=== PATIENT | female | born 1940 ===

== ENCOUNTER 2024-08-08 16:45 | Inpatient (IN) | payer MEDICARE, SELFPAY ==
[2024-08-08 10:59] VITALS: BP 132/80
--- NOTE | 2024-08-08 11:08 | ED.MUSCINJ ---
HPI-Injury
<Kana Van PA-C - Last Filed: 08/08/24 18:51>
General
Chief Complaint: Musculo-Skeletal Complaint
Time Seen by Provider: 08/08/24 12:34
<Fran Hill DO - Last Filed: 08/08/24 14:58>
General
Source: patient and family (daughter)
History of Present Illness-Injury
Initial Injury comments:
84-year-old female presents to the emergency room complaining of left hip pain. Patient is a highly active individual who states she woke up this morning feeling great. She was doing activities around her house like cooking and cleaning. After
sitting down for short period time she got up and suddenly felt pain in the left lateral hip area. The pain was significant and was preventing her from weightbearing. Patient does not go any recent injury. No abdominal pain. Patient denies any
fever or chills. She does not recall any history of left hip issues.
ED Provider Triage
<Kana Van PA-C - Last Filed: 08/08/24 18:51>
-
Patient seen by provider in Triage?: Seen in Triage
84-year-old female presents via EMS from home with sudden onset left hip pain. She notes pain to the anterior and lateral left hip. Unable to bear weight. No prior surgical history to the hip. She is on Xarelto. Having trouble ambulating
because of the pain. X-rays of left hip ordered. Vital signs are stable. Recommended further evaluation
Phy Exam
<Fran Hill DO - Last Filed: 08/08/24 14:58>
Physical Exam
Physical Exam:
General: Awake, Alert, Oriented X3. No acute distress.
Vitals: unremarkable
Head: Atraumatic
Eyes: Pupils equal, EOMI
Throat: Airway intact, no exudates
Neck: Trachea midline
Abd: Soft, Nontender, No pulsatile mass
Neuro: Nonfocal
Skin: Warm, dry, no rash
Extremities: pulses equal b/l, no edema. Tenderness to palpation over the lateral hip in the greater trochanteric region. Perhaps some fullness in this area. No pain with passive flexion. There is pain with internal and external rotation.
Injury Course
<Kana Van PA-C - Last Filed: 08/08/24 18:51>
Orders/Labs/Results
Orders:
Orders
08/08/24 Breakfast
Regular
At Your Request: Full Participation
Does patient need a safe tray?: No
08/08/24 11:07
CR Hip - LT w/wo Pel 2-3 Vw* Urgent
Comment:
Reason For Exam: pain left hip
Include a pelvis x-ray?: Yes
08/08/24 13:09
CT Lower Ext W/o Iv Cont Lt Urgent
Comment:
Reason For Exam: sudden lt hip pain, on Xarelto
08/08/24 14:22
HYDROmorphone [Dilaudid] 0.5 mg IV NOW STA
08/08/24 14:33
Type+Screen Urgent
Basic Metabolic Panel Urgent
Complete Blood Count/With Diff Urgent
08/08/24 14:58
Electrocardiogram (*1) Urgent
Reason for Study: Atrial Fibrillation
EKG- Treatment ONCE
08/08/24 15:19
ABO2 Urgent
BBK Wristband Number:
Associate notified that ABO2 has been ordered: [id number]
Date: 08/08/24
Time: 14:53
Heavy Forger Helper ID: [id number]
08/08/24 15:25
Admit/Transfer Patient As Directed
Co-Sign Provider:
Level of Care: Observation services
Assign to:: Medical/Surgical
Physician / Group: Leatha
Diagnosis: Left Thigh Hematoma
08/08/24 15:26
PRN Pain Medication Management As Directed
May give lesser potent ordered pain med per pt: Yes
preference::
Protocol:: Medication orders for pain may be administered in a
manner that supports deferring to patient preference
when the pt is:
- Requesting an ordered lesser potent pain medication.
Least to most potent pain medications are defined
as: acetaminophen < NSAID < tramadol < opioids
(morphine, oxycodone, hydromorphone).
- Requesting a lesser dose of the same medication IF
ORDERED.
- Requesting a less intrusive route of administration
if both routes are prescribed by the provider (PO <
IV).
08/08/24 15:28
Code Status As Directed
Resuscitation Status: Full Code
08/08/24 16:35
Acetaminophen [Tylenol] 1,000 mg PO Q8HPRN PRN
HYDROmorphone [Dilaudid] 0.25 mg IV Q3HPRN PRN
Oxycodone [Roxicodone] 5 mg PO Q4HPRN PRN
08/08/24 16:35
Activity As Directed
Activity Level: Out of Bed-Early Mobility
With Assistance
Pneumatic Compression Sleeves As Directed
Type: Knee high
Vital Signs As Directed
Frequency: Per unit guidelines
Ot Eval And Treat Routine
Pt Eval And Treat Routine
Activity Level: Out of Bed-Early Mobility
DX Deep Vein Thrombosis Video Routine
08/08/24 20:00
H&H Routine
08/09/24 06:00
Basic Metabolic Panel IN AM
Complete Blood Count/No Diff IN AM
08/09/24 08:00
Amlodipine [Norvasc] 5 mg PO DAILY
Atenolol [Tenormin] 50 mg PO DAILY
Abnormal Lab Results
08/08/24
14:33
RBC 4.08 L 10^6/uL
(4.20-5.40)
MCH 32.4 H pg
(27.0-31.0)
08/08/24 14:33
08/08/24 14:33
<Fran Hill, DO - Last Filed: 08/08/24 14:58>
Orders/Labs/Results
Orders:
Orders
08/08/24 Breakfast
Regular
At Your Request: Full Participation
Does patient need a safe tray?: No
08/08/24 11:07
CR Hip - LT w/wo Pel 2-3 Vw* Urgent
Comment:
Reason For Exam: pain left hip
Include a pelvis x-ray?: Yes
08/08/24 13:09
CT Lower Ext W/o Iv Cont Lt Urgent
Comment:
Reason For Exam: sudden lt hip pain, on Xarelto
08/08/24 14:22
HYDROmorphone [Dilaudid] 0.5 mg IV NOW STA
08/08/24 14:33
Type+Screen Urgent
Basic Metabolic Panel Urgent
Complete Blood Count/With Diff Urgent
08/08/24 14:58
Electrocardiogram (*1) Urgent
Reason for Study: Atrial Fibrillation
EKG- Treatment ONCE
08/08/24 15:19
ABO2 Urgent
BBK Wristband Number:
Associate notified that ABO2 has been ordered: [id number]
Date: 08/08/24
Time: 14:53
Heavy Forger Helper ID: [id number]
08/08/24 15:25
Admit/Transfer Patient As Directed
Co-Sign Provider:
Level of Care: Observation services
Assign to:: Medical/Surgical
Physician / Group: Leatha
Diagnosis: Left Thigh Hematoma
08/08/24 15:26
PRN Pain Medication Management As Directed
May give lesser potent ordered pain med per pt: Yes
preference::
Protocol:: Medication orders for pain may be administered in a
manner that supports deferring to patient preference
when the pt is:
- Requesting an ordered lesser potent pain medication.
Least to most potent pain medications are defined
as: acetaminophen < NSAID < tramadol < opioids
(morphine, oxycodone, hydromorphone).
- Requesting a lesser dose of the same medication IF
ORDERED.
- Requesting a less intrusive route of administration
if both routes are prescribed by the provider (PO <
IV).
08/08/24 15:28
Code Status As Directed
Resuscitation Status: Full Code
08/08/24 16:35
Acetaminophen [Tylenol] 1,000 mg PO Q8HPRN PRN
HYDROmorphone [Dilaudid] 0.25 mg IV Q3HPRN PRN
Oxycodone [Roxicodone] 5 mg PO Q4HPRN PRN
08/08/24 16:35
Activity As Directed
Activity Level: Out of Bed-Early Mobility
With Assistance
Pneumatic Compression Sleeves As Directed
Type: Knee high
Vital Signs As Directed
Frequency: Per unit guidelines
Ot Eval And Treat Routine
Pt Eval And Treat Routine
Activity Level: Out of Bed-Early Mobility
DX Deep Vein Thrombosis Video Routine
08/08/24 20:00
H&H Routine
08/09/24 06:00
Basic Metabolic Panel IN AM
Complete Blood Count/No Diff IN AM
08/09/24 08:00
Amlodipine [Norvasc] 5 mg PO DAILY
Atenolol [Tenormin] 50 mg PO DAILY
Abnormal Lab Results
08/08/24
14:33
RBC 4.08 L 10^6/uL
(4.20-5.40)
MCH 32.4 H pg
(27.0-31.0)
08/08/24 14:33
08/08/24 14:33
<Kana Van PA-C - Last Filed: 08/08/24 18:51>
*Critical Care Note
Total Time (30-74mins, 75-104mins- exclusive of procedures): Not Applicable
ED Attending Note
<Kana Van PA-C - Last Filed: 08/08/24 18:51>
-
Portions of this chart may have been created with voice recognition software.� Occasional wrong word or��sound alike� substitutions may have occurred due to the inherent limitations of voice recognition software.
Discharge Plan
Departure
Patient Disposition: Admit
Date of Disposition: 08/08/24
Time of Disposition: 14:57
Admit to: Med/Surg
Presentation/result/management discussed w/ accepting MD/DO: Hospitalist
Condition: Fair
Discharge Problem:
Hematoma of left thigh
Interventions
Interventions:
*Risk Screen - Suicide Last Done: 08/08/24 11:06
*General Assessment Last Done: 08/08/24 11:06
*Neglect/Abuse Screening Last Done: 08/08/24 11:06
*ED COVID-19 Vaccine History Last Done: 08/08/24 12:39
ED-Musculoskeletal Assessment Last Done: 08/08/24 12:39
[2024-08-08 14:42] LABS: % Basophils 0.7 % (0-2); % Eosinophils 0.9 % (0-6); % Immature Granulocytes 0.3 % (0-0.5); % Lymphocytes 24.3 % (20.5-51.1); % Monocytes 5.6 % (1.7-9.3); % Neutrophils 68.2 % (42.2-75.2); Absolute Basophils 0.1 10^3/uL (0-0.2); Absolute Eosinophils 0.1 10^3/uL (0-0.7); Absolute Lymphocytes 1.7 10^3/uL (1.2-3.4); Absolute Monocytes 0.4 10^3/uL (0.1-0.6); Absolute Neutrophils 4.7 10^3/uL (1.4-6.5); Hematocrit 37.6 % (37.0-47.0); Hemoglobin 13.2 g/dL (12.0-16.0); Mean Corp Hgb Conc. 35.1 g/dL (33.0-37.0); Mean Corpuscular Hgb 32.4 pg (27.0-31.0); Mean Corpuscular Volume 92.2 fL (81.0-99.0); Mean Platelet Volume 8.8 fL (7.4-10.4); Nucleated Red Blood Cells % 0 %; Platelet Count 189 10^3/uL (130-400); Red Blood Cell Count 4.08 10^6/uL (4.20-5.40); White Blood Cell Count 6.9 10^3/uL (4.8-10.8)
[2024-08-08 15:10] LABS: Blood Urea Nitrogen 17 mg/dl (7-17); Carbon Dioxide 27 mmol/L (22-30); Glucose 99 mg/dl (70-99); Sodium 143 mmol/L (135-145); eGFR > 60.00
[2024-08-08] MEDS: DILAUDID 0.5 MG IV (15:14)
--- NOTE | 2024-08-08 15:23 | HPS.HSE ---
Addendum entered and electronically signed by Silvia Zhang MD 08/08/24 17:00:
I saw and examined the patient.
The WATER TAXI FERRY OPERATOR or PA's note was reviewed and I agree with the note.
Comment:
84-year-old female presented to ER with gait problem and left hip pain. Patient reports being active at home doing activities around her house like cooking and cleaning. After sitting down for short period time she got up and suddenly felt pain
in the left lateral hip area. The pain was significant and was preventing her from weightbearing. Patient denied any recent injury or fall. No abdominal pain. Patient denies any fever or chills. She does not recall any history of left hip
issues.
Physical Exam
General: Comfortable and Conversant
HEENT: Anicteric and Moist mucous membranes
Respiratory: Clear and Non Labored Respirations
Cardiac: S1/S2 and Irregular Rhythm; No Tachycardia
GI: Soft and Non Tender
Musculoskeletal: No Clubbing, No Cyanosis, No Edema and Other (Tenderness to palpation left thigh/lateral hip)
Skin: Warm, Dry and Other (No bruising)
Neuro: Awake, Alert, Oriented and Nonfocal/grossly intact
Psych: Calm
Spontaneous Left Thigh Hematoma exacerbated by Xarelto
Will hold full dose of AC for now. Hematoma seemed confided, 5.0 x 4.0 heterogeneous, mildly hyperdense ill-defined collection along the posterior lateral left gluteal soft musculature/greater trochanter. No circulatory compromise, good peripheral
pulses.
- Will hold full dose of Xarelto and monitor H &H, if no acute drop, will resume Xarelto.
-Monitor H&H
-Consulted PT/OT
# Permanent Atrial Fibrillation,
No chest pain
-Xarelto dosing as above
# Essential Hypertension
-Continue amlodipine and atenolol with hold parameters
DVT proph: SCDs
Code Status: Full Code
Total time spent to see the patient on the floor, examine the patient, review data and lab results, discuss treatment plan with patient, ER doctor, nursing staff around 75 minutes
Original Note:
Family Physician
-
Family Physician: Margaret Larsen PA-C
Chief Complaint
-
Left Thigh Pain
History of Present Illness
Patient is an 84 y/o female past medical history of paroxysmal atrial fibrillation and hypertension who presents with left thigh pain. Patient reports she had a very busy morning doing laundry and cooking. She sat on the cough for a little and
when she tried to stand up she was unable to do so due to severe pain in her left thigh. Pain was so severe that she presented to the emergency department for evaluation. Work-up in the ED revealed a left thigh hematom. Patient denies any trauma
or injury. She is on Xarelto for her a-fib with last dose yesterday evening.
Medical History
Past Medical History
Past Medical History: Reports Other
Additional Past Medical History:
Atrial Fibrillation
Essential Hypertension
Past Surgical History: Reports Other
Additional Past Surgical History:
Cholecystectomy
Appendectomy
Hernia Repair
Bilateral Foot Surgery
Bilateral Upper Extremity Lumpectomy
Social History
Tobacco: Non-smoker
Alcohol: None
Personal:
Family History
Family History: Not pertinent
Allergies / Home Medications
Allergies reflects when Allergies were last updated in [employer].
Home Medications with original date entered in [employer]
Allergy/Medication List:
Allergies
Allergy/AdvReac Type Severity Reaction Status Date / Time
No Known Allergies Allergy Unverified 08/08/24 11:24
Home Medications
acetaminophen 500 mg tablet (Tylenol Extra Strength) 1,000 mg PO Q8HPRN PRN mild pain 08/08/24
amlodipine 5 mg tablet 5 mg PO DAILY 08/08/24
atenolol 50 mg tablet 50 mg PO DAILY 08/08/24
calcium carbonate (Calcium 500) 500 mg PO DAILY 08/08/24
cholecalciferol (vitamin D3) 25 mcg (1,000 unit) tablet (Vitamin D3) 25 mcg PO DAILY 08/08/24
cyanocobalamin (vitamin B-12) 1,000 mcg tablet 1,000 mcg PO DAILY 08/08/24
hydrochlorothiazide 12.5 mg tablet 12.5 mg PO DAILY 08/08/24
multivitamin with minerals-folic acid 200 mcg chewable tablet (Multivitamin Gummies) 2 tab PO DAILY 08/08/24
rivaroxaban 20 mg tablet (Xarelto) 20 mg PO QPM 08/08/24
Review of Systems
-
A 12 point ROS was completed and negative except as noted: Yes
Constitutional: Denies Fever or Chills
Respiratory: Denies Cough or Trouble Breathing
Cardiac: Denies Chest Pain or Palpitations
Physical Exam
Vital Signs
Vital Signs
Temp Pulse Resp BP Pulse Ox
98.2 F 68 18 132/80 100
08/08/24 10:59 08/08/24 10:59 08/08/24 10:59 08/08/24 10:59 08/08/24 10:59
Physical Exam
General: Comfortable and Conversant
HEENT: Anicteric and Moist mucous membranes
Respiratory: Clear and Non Labored Respirations
Cardiac: S1/S2 and Irregular Rhythm; No Tachycardia
GI: Soft and Non Tender
Musculoskeletal: No Clubbing, No Cyanosis, No Edema and Other (Tenderness to palpation left thigh/lateral hip)
Skin: Warm, Dry and Other (No bruising)
Neuro: Awake, Alert, Oriented and Nonfocal/grossly intact
Psych: Calm
Laboratory Results
-
08/08/24 14:33
08/08/24 14:33
Data Reviewed
-
CT Scan: Report Reviewed by me
Lab Data: Labs Reviewed by me
Impression/Plan
-
Spontaneous Left Thigh Hematoma
-Give Xarelto 10mg this evening
-Monitor H&H
-Consult PT/OT
Atrial Fibrillation, unknown duration possibly persistent/permanent
-Xarelto dosing as above
Essential Hypertension
-Continue amlodipine and atenolol with hold parameters
DVT proph: SCDs
Code Status: Full Code
[2024-08-08 16:41] LABS: Chloride 104 mmol/L (98-107)
[2024-08-08 17:09] VITALS: BMI 24.7
[2024-08-08] MEDS: XARELTO 10 MG PO (17:45)
[2024-08-08 20:07] LABS: Hematocrit 33.4 % (37.0-47.0); Hemoglobin 11.7 g/dL (12.0-16.0)
[2024-08-08 22:05] VITALS: BP 105/60
[2024-08-08] MEDS: TYLENOL 1000 MG PO (22:19)
--- NOTE | 2024-08-08 22:21 | PTCARENOTE ---
Pt reports left thigh discomfort 4/10 pain. Tylenol administered as ordered per request. Pt denies any other complaints at this time. Pt voided on bedpan without difficulty. Will continue to monitor.
[2024-08-09] VITALS (8 sets, daily range): BP systolic 95–124; BP diastolic 50–78; PULSE 70; BMI 23.7
[2024-08-09] MEDS: ROXICODONE 5 MG PO (03:06)
[2024-08-09 05:47] LABS: Hematocrit 33.8 % (37.0-47.0); Hemoglobin 11.6 g/dL (12.0-16.0); Mean Corp Hgb Conc. 34.3 g/dL (33.0-37.0); Mean Corpuscular Hgb 32.3 pg (27.0-31.0); Mean Corpuscular Volume 94.2 fL (81.0-99.0); Platelet Count 165 10^3/uL (130-400); Red Blood Cell Count 3.59 10^6/uL (4.20-5.40); Red Cell Dist. Width 13.2 % (11.5-14.5); White Blood Cell Count 5.1 10^3/uL (4.8-10.8)
[2024-08-09 06:24] LABS: Blood Urea Nitrogen 20 mg/dl (7-17); Calcium 9.3 mg/dl (8.4-10.2); Carbon Dioxide 30 mmol/L (22-30); Chloride 104 mmol/L (98-107); Estimated Creatinine Clearance 45 ml/min; Glucose 106 mg/dl (70-99); Potassium 3.9 mmol/L (3.5-5.1); Sodium 141 mmol/L (135-145); eGFR > 60.00
--- NOTE | 2024-08-09 08:26 | W.PN.HOSP.TC ---
Today's Communication/Plan
-
Pain control with Tylenol, as needed tramadol
Add as needed Zofran
Her on Dilaudid for severe pain
Hemoglobin check tonight
Fall precautions
Continue with PT/OT
Likely discharge on Tuesday if stable
Assessment / Plan
Assessment / Plan
84-year-old female presented to ER with gait problem and left hip pain. Patient reports being active at home doing activities around her house like cooking and cleaning. After sitting down for short period time she got up and suddenly felt pain
in the left lateral hip area. The pain was significant and was preventing her from weightbearing. Patient denied any recent injury or fall. No abdominal pain. Patient denies any fever or chills. She does not recall any history of left hip
issues.
Physical Exam
General: Comfortable and Conversant
HEENT: Anicteric and Moist mucous membranes
Respiratory: Clear and Non Labored Respirations
Cardiac: S1/S2 and Irregular Rhythm; No Tachycardia
GI: Soft and Non Tender
Musculoskeletal: No Clubbing, No Cyanosis, No Edema and Other (Tenderness to palpation left thigh/lateral hip)
Skin: Warm, Dry and Other (No bruising)
Neuro: Awake, Alert, Oriented and Nonfocal/grossly intact
Psych: Calm
# Spontaneous Left Thigh Hematoma exacerbated by Xarelto
Will hold Xarelto due to drop in HGB
CT showed 5.0 x 4.0 heterogeneous, mildly hyperdense ill-defined collection along the posterior lateral left gluteal soft musculature/greater trochanter. No circulatory compromise, good peripheral pulses.
- Monitor H &H, if no acute drop, will resume Xarelto.
- consulted surgery, recommend pain control and re-image in 6-8 weeks.
-Consulted PT/OT
-Patient had severe pain over night. She was given oxycodone. Order Tylenol 3 times daily
-Currently patient feels pain is better controlled. She experienced GI upset with oxycodone, discussed with patient, will try tramadol as needed, add as needed Zofran.
Keep intravenous Dilaudid for as needed
# Acute blood loss anemia exacerbated by Xarelto
Hold Xarelto
Monitor H&H
No hemodynamic instability
# Permanent Atrial Fibrillation,
No chest pain
Holding Xarelto pending stabilization of hemoglobin
# Essential Hypertension
-Continue amlodipine and atenolol with hold parameters
DVT proph: SCDs
Code Status: Full Code
Total time spent to see the patient on the floor, examine the patient, review data and lab results, discuss treatment plan with patient, patient's daughter, surgery, nursing staff around 59 minutes
Anticipated Discharge: Within 24 hours
Subjective/Interval History
-
Date of Service: August 09, 2024
Objective Data
-
Labs:
Laboratory Results
08/09/24 08/09/24
05:35 12:00
WBC 5.1
Hgb 11.6 L Pending
Hct 33.8 L
Plt Count 165
Sodium 141
Potassium 3.9
Chloride 104
Carbon Dioxide 30
BUN 20 H
Creatinine 0.8
Glucose 106 H
Calcium 9.3
Vital Signs:
Vital Signs
Temp Pulse Resp BP Pulse Ox
98.5 F 74 16 105/60 99
08/08/24 22:05 08/08/24 22:05 08/08/24 22:05 08/08/24 22:05 08/08/24 22:05
[2024-08-09] MEDS: TYLENOL 1000 MG PO ×2 (08:33→16:20)
[2024-08-09] MEDS: NORVASC 5 MG PO (08:34)
[2024-08-09] MEDS: TENORMIN PO (08:34)
--- NOTE | 2024-08-09 09:50 | CON.GS ---
Consultation
-
Reason for Consultation: Left lower extremity hematoma
Medical History
-
Chief Complaint: Lower extremity pain difficulty walking
History of Present Illness:
Patient is an 84-year-old female chronically anticoagulated on Xarelto for A-fib. She was in her usual baseline state of health through yesterday a.m. Lives with her daughter who is a nurse at [employer]. States that she was sitting on
the couch having a conversation with her daughter when she reached over for the telephone and took note of the acute onset of left hip and gluteal pain. This was sharp and abrupt in nature. At first she thought she may have spontaneously fractured
her femur. She was having difficulty walking and the pain persisted for couple hours so EMS was called and she was transported to [facility] emergency department for evaluation.
CT imaging identified a heterogeneous collection along the lateral aspect of the left greater trochanter and into the left gluteal region measuring approximately 5 x 4 cm. Noncontrast imaging so unable to assess for active blush.
This a.m. patient states that the discomfort is still there but it has slightly improved. She was able to ambulate for the first time with assistance to the bathroom. There is no visible swelling or ecchymosis on the skin.
Patient denies any trauma to the area nor fall. Prior to sitting on the couch when her symptoms started she was standing preparing dinner for the evening.
Past Medical History
Past Medical History: Other (Atrial fibrillation chronically anticoagulated on Xarelto, hypertension)
Past Surgical History: Other (Cholecystectomy, appendectomy, herniorrhaphy, foot surgeries)
Social History
Tobacco: Non-Smoker
Alcohol: None
Personal:
Living: With Family
Employment: Employed
Family History
Family History: Reviewed & Not Pertinent
Allergies / Home Medications
Allergy/AdvReac Type Severity Reaction Status Date / Time
No Known Allergies Allergy Unverified 08/08/24 11:24
�Medication �Instructions �Recorded �Confirmed �Type
acetaminophen 500 mg tablet 1,000 mg PO Q8HPRN PRN mild pain 08/08/24 08/08/24 History
(Tylenol Extra Strength)
amlodipine 5 mg tablet 5 mg PO DAILY Blood Pressure 08/08/24 08/08/24 History
atenolol 50 mg tablet 50 mg PO DAILY Blood Pressure 08/08/24 08/08/24 History
calcium carbonate (Calcium 500) 500 mg PO DAILY Supplement 08/08/24 08/08/24 History
cholecalciferol (vitamin D3) 25 25 mcg PO DAILY Supplement 08/08/24 08/08/24 History
mcg (1,000 unit) tablet (Vitamin
D3)
cyanocobalamin (vitamin B-12) 1,000 mcg PO DAILY Supplement 08/08/24 08/08/24 History
1,000 mcg tablet
hydrochlorothiazide 12.5 mg tablet 12.5 mg PO DAILY Blood Pressure 08/08/24 08/08/24 History
multivitamin with minerals-folic 2 tab PO DAILY supplement 08/08/24 08/08/24 History
acid 200 mcg chewable tablet
(Multivitamin Gummies)
rivaroxaban 20 mg tablet (Xarelto) 20 mg PO QPM Blood Clot 08/08/24 08/08/24 History
Prevention/Tx
Review of Systems
-
A 10 point review of systems was completed, and was negative except as per HPI.
Physical Exam
Vital Signs
Temp Pulse Resp BP Pulse Ox
98.3 F 71 18 117/75 100
08/09/24 09:09 08/09/24 09:09 08/09/24 09:09 08/09/24 09:09 08/09/24 09:09
08/08/24 08/09/24 08/10/24
06:59 06:59 06:59
Actual Weight 63.3 kg
Body Mass Index (BMI) 24.7
Lab Results
08/09/24 05:35
WBC 5.1 10^3/uL (4.8-10.8) 08/09/24 05:35
Hgb 11.6 g/dL (12.0-16.0) L 08/09/24 05:35
Hct 33.8 % (37.0-47.0) L 08/09/24 05:35
Plt Count 165 10^3/uL (130-400) 08/09/24 05:35
Abs Immat Gran (auto) 0.0 10^3/uL (0-0.05) 08/08/24 14:33
Neutrophils % 68.2 % (42.2-75.2) 08/08/24 14:33
Physical Exam
General: Well Developed, Well Nourished, No Apparent Distress and Other
HEENT: Normocephalic, Anicteric and Moist Mucous Membranes
Respiratory: Non Labored Respirations
Musculoskeletal: Other (No visible swelling along the left hip/greater trochanteric region. Tenderness palpation overlying the left gluteal/greater trochanteric, posterior thigh. No visible ecchymosis either.)
Skin: Warm
Neuro: AO x 3
Psych: Calm
Data Reviewed
-
CT Scan: Image Personally Visualized and interpreted, Discussed with Physician and Discussed with Patient
Labs: Labs Reviewed by me, Discussed with Physician and Discussed with Patient
Assessment / Plan
-
Assessment: 84-year-old female with left gluteal/greater trochanteric intramuscular soft tissue collection presumed to be spontaneous hematoma while on therapeutic anticoagulation (Xarelto for A-fib). No trauma reported. Modest size hematoma and
does not appear expansile.
Hemoglobin stable at 11.6 from 11.7 yesterday evening.
Looking through her MAR she received a lower dose of Xarelto 10 mg overnight
No indications for operative or therapeutic interventions (angioembolization) as no clinical signs suggestive of ongoing bleeding and no significant compressive symptoms other than discomfort from moderate size hematoma.
Plan: Will defer decisions on therapeutic anticoagulation to hospitalist service as she was administered lower dose Xarelto overnight.
Supportive care and increase ambulation as able
If decline in hemoglobin or signs of ongoing blood loss would hold all anticoagulation
Would also recommend consideration of outpatient imaging either MRI or CT with contrast in 6 to 8 weeks to confirm that there is no underlying soft tissue abnormality that may have predisposed patient to developing a spontaneous hematoma.
Signing off; please call if can be of further assistance with care.
[2024-08-09 12:34] LABS: Hemoglobin 11.1 g/dL (12.0-16.0)
[2024-08-09] MEDS: ULTRAM 50 MG PO ×2 (13:37→21:15)
[2024-08-09 20:28] LABS: Hemoglobin 11.1 g/dL (12.0-16.0)
[2024-08-09] MEDS: TYLENOL PO (22:00)
[2024-08-10 08:00] VITALS: BP 122/69
[2024-08-10 08:15] LABS: Hematocrit 33.4 % (37.0-47.0); Hemoglobin 11.3 g/dL (12.0-16.0); Mean Corp Hgb Conc. 33.8 g/dL (33.0-37.0); Mean Corpuscular Hgb 32.8 pg (27.0-31.0); Mean Corpuscular Volume 97.1 fL (81.0-99.0); Platelet Count 158 10^3/uL (130-400); Red Blood Cell Count 3.44 10^6/uL (4.20-5.40); Red Cell Dist. Width 13.1 % (11.5-14.5)
[2024-08-10 08:44] LABS: Blood Urea Nitrogen 18 mg/dl (7-17); Calcium 8.8 mg/dl (8.4-10.2); Carbon Dioxide 29 mmol/L (22-30); Chloride 103 mmol/L (98-107); Estimated Creatinine Clearance 45 ml/min; Glucose 90 mg/dl (70-99); Potassium 4.3 mmol/L (3.5-5.1); Sodium 142 mmol/L (135-145); eGFR > 60.00
--- NOTE | 2024-08-10 09:33 | W.DCSUMMARY ---
Discharge Summary
Discharge Data
Date of Admission: 08/08/24
Date of Discharge: 08/10/24
-
Pending Results: No
Hospital Course
84 years old female presented with left hip pain that happened suddenly. Patient denied history of trauma or fall. She presented to the emergency room with pain in the left hip area and inability to bear weight. Scan of the lower extremity showed
5.0 x 4.0 heterogeneous hematoma extending along the posterior lateral left gluteal soft musculature and greater trochanteric area. Patient was admitted to the hospital for pain control. Patient was taking Xarelto 20 mg for history of atrial
fibrillation. She was diagnosed with acute blood loss anemia exacerbated by Xarelto. Her hemoglobin stabilized around 11. Patient was evaluated by surgery recommended pain control and reimaging follow-up in few weeks. Pain was controlled with
Tylenol and as needed tramadol. Patient was placed back on Xarelto, pharmacist recommended to change the dose of Xarelto to 15 mg daily according to age, kidney function and weight. Patient remained hemodynamically stable and was discharged home
in a stable condition. She was evaluated by physical therapy.
Physical Exam
General: Comfortable and Conversant
HEENT: Anicteric and Moist mucous membranes
Respiratory: Clear and Non Labored Respirations
Cardiac: S1/S2 and Irregular Rhythm; No Tachycardia
GI: Soft and Non Tender
Musculoskeletal: No Clubbing, No Cyanosis, No Edema and Other (Tenderness to palpation left thigh/lateral hip)
Skin: Warm, Dry and Other (No bruising)
Neuro: Awake, Alert, Oriented and Nonfocal/grossly intact
Psych: Calm.
Total time spent to see the patient on the floor, examine the patient, review data and lab results, discuss treatment plan with patient and her daughter, nursing staff around 55 minutes
Discharge Plan
-
Patient Disposition: Home (Routine Discharge)
Discharge Diagnosis/Procedures: Left hip pain due to non-traumatic spontaneous hematoma while on Xarelto.
Acute blood loss anemia, HGB stabilized around 11.
You can resume Xarelto but recommended dose is 15 mg daily.
Diet: As tolerated
Referrals:
Margaret Larsen PA-C [Family Provider] -
Humberto Guzman MD [Active] - in two to three weeks
Prescriptions:
New
tramadol 50 mg Tablet
50 mg PO Q6HPRN PRN (Reason: Severe pain) Qty: 15 0RF
Xarelto 15 mg tablet
15 mg PO QPM Qty: 30 0RF
Continued
cyanocobalamin (vitamin B-12) 1,000 mcg Tablet
1,000 mcg PO DAILY
amlodipine 5 mg Tablet
5 mg PO DAILY
calcium carbonate [Calcium 500] 500 mg calcium (1,250 mg) Tablet,Chewable
500 mg PO DAILY
atenolol 50 mg Tablet
50 mg PO DAILY
cholecalciferol (vitamin D3) [Vitamin D3] 25 mcg (1,000 unit) Tablet
25 mcg PO DAILY
hydrochlorothiazide 12.5 mg Tablet
12.5 mg PO DAILY
multivit with min-folic acid [Multivitamin Gummies] 200 mcg Tablet,Chewable
2 tab PO DAILY
acetaminophen [Tylenol Extra Strength] 500 mg Tablet
1,000 mg PO Q8HPRN PRN (Reason: mild to moderate pain) Qty: 0 0RF
Discontinued
Xarelto 20 mg Tablet
20 mg PO QPM
Discharge Orders:
Discharge Patient (As Directed); Ordered 08/10/24
Ordered By: Silvia Zhang
Discharge Date and Time
Print Language: [place]
--- NOTE | 2024-08-10 10:08 | CM ---
Addendum entered by Nedra Pineda 08/10/24 14:09:
Plan; Discharge to home today with VN.
Addendum entered by Nedra Pineda 08/10/24 10:51:
Patient has switched to inpatient IMM signed and placed on chart.
Original Note:
Patient was admitted under observation, [facility] letter completed and placed on chart. Patient resides in a in law suite in daughter's home along with her spouse, patient's grandson also lives in the home, patient reports that she is independent with
adl's and ambulation, does not use any dme, works [employer]. Patient drives. Patient has a walker and 2 canes in home.
PCP: Margaret Larsen
Pharmacy: [facility] in [place]
[2024-08-10] MEDS: TENORMIN 50 MG PO (10:12)
[2024-08-10] MEDS: TYLENOL 1000 MG PO (10:12)
[2024-08-10] MEDS: NORVASC 5 MG PO (10:12)
--- NOTE | 2024-08-10 10:36 | VNURNOTE ---
Home Health Liaison spoke with patient to discuss [facility] nurse/therapy, visits, schedule and homebound status. Patient is agreeable and understands that visits at home will be 2-3 x per week to assess and teach medical management. Patient is aware
that [facility] will contact them for start of care in 1-2 days after discharge from .
[facility] referral completed in [facility].
[2024-08-10 12:57] VITALS: BP 118/70
[2024-08-10 14:57] VITALS: BP 118/70
== END 2024-08-10 14:10 | disposition home health service (06) | DRG 813 ==
LOC: 4 WEST ACU 16:45
PROVIDERS: Physician Assistant Medical; ADMITTING PHYSICIAN Internal Medicine; CONSULT PHYSICIAN Surgery; EMERGENCY PHYSICIAN Emergency Medicine; FAMILY PHYSICIAN Physician Assistant
DX: D68.32 Hemorrhagic disorder due to extrinsic circulating anticoagulants (principal); D62 Acute posthemorrhagic anemia; I48.21 Permanent atrial fibrillation; I10 Essential (primary) hypertension; M79.81 Nontraumatic hematoma of soft tissue; M25.552 Pain in left hip; T45.515A Adverse effect of anticoagulants, initial encounter; Z79.01 Long term (current) use of anticoagulants; Z79.899 Other long term (current) drug therapy
CPT/HCPCS: 73502; 73700; 80048; 85014; 85018; 85025; 85027; 86850; 86900; 86901; 93005; 96374; 97530; 99285

== ENCOUNTER → 2024-08-17 10:07 | Outpatient (REF) | payer MEDICARE, SELFPAY | LOC: RAD 10:07 | PROVIDERS: ATTENDING PHYSICIAN Physician Assistant | DX: R22.40 Localized swelling, mass and lump, unspecified lower limb (principal); R60.0 Localized edema; M79.605 Pain in left leg | CPT/HCPCS: 93971 ==

== ENCOUNTER → 2024-10-08 06:44 | Outpatient (REF) | payer MEDICARE, SELFPAY | LOC: PAVMRI 06:44 | PROVIDERS: ATTENDING PHYSICIAN Surgery; PRIMARYCARE PHYSICIAN Family Medicine | DX: T14.8XXA Other injury of unspecified body region, initial encounter (principal) | CPT/HCPCS: 73721 ==